=== PATIENT | male | born 1980 | race Caucasian/White ===

== ENCOUNTER 2016-09-30 09:42 | Emergency (ER) | payer OTHER ==
[2016-09-30] MEDS ORDERED: NS 1,000 ML IV ONE (10:07)
--- NOTE | 2016-09-30 10:10 | CPEKG ---
Heart Rate: 72 RR Interval: 833 P-R Interval: 156 QRSD Interval: 78 QT Interval: 368 QTC Interval: 403 P [place]: 62 QRS [place]: 70 T Wave [place]: 43 EKG Severity - NORMAL ECG - EKG Impression: SINUS RHYTHM Electronically Signed By: Gordon Garza 30-Sep-2016 10:10:49
--- NOTE | 2016-09-30 10:14 | EDPHY ---
H & P Stated Complaint: H/A and palpitations x 1 wk Source: Patient, Family Exam Limitations: No limitations - Personal History Current Tetanus Diphtheria and Acellular Pertussis (TDAP): Unsure - Medical/Surgical History Other PMH: healthy - Social History Smoking Status: Never smoked HPI/ROS: CHIEF COMPLAINT: Palpitations, no shortness of breath, dizziness HISTORY OF PRESENT ILLNESS: Patient complains of intermittent palpitations, shortness of breath, headache and dizziness. This originally started over the weekend. It is unpredictable and its onset. It is very brief when it does happen lasting less than a minute. There are no exacerbating factors. No alleviating factors as it resolved spontaneously. No actual chest pain, but he does have some pressure and he feels his heart beating when it happens. No lower extremity erythema edema or pain. No recent travel or surgery. No history of venous thrombolic event. Headache is mild, generalized and moves. No neck pain or stiffness. No sudden onset of the headache. This is not the worst headache of his life. No other associated complaints or modifying factors. PCP: Dr. Last, [facility] REVIEW OF SYSTEMS: Ten systems reviewed and are negative unless otherwise noted in the HPI PERTINENT MEDICAL HISTORY: History of hypotension EXAMINATION General Appearance: Alert, no distress Head: normocephalic, atraumatic Eyes: Pupils equal and round, no conjunctival pallor or injection ENT, Mouth: Mucous membranes moist. Uvula midline. Airway widely patent. Neck: Normal inspection, supple, non-tender. Painless range of motion all planes. Respiratory: Lungs are clear to auscultation. No wheezing, rhonchi or crackles. Cardiovascular: Regular rate and rhythm. No murmur. Gastrointestinal: Abdomen is soft and nontender Back: non-tender, no bony abnormalities Neurological: GCS 15. A&O, nonfocal, normal gait Skin: Warm and dry, no rash Extremities: Nontender, no pedal edema Psychiatric: Mood and affect normal DIFFERENTIAL DIAGNOSES: Including but not limited to the paroxysmal AFib, SVT, V-tach, anemia, PE, ACS, weakness, dehydration, electrolyte disturbance MDM: 10:08 a.m. Mild MENDOZA with Intermittent palpitations with some chest discomfort shortness of breath. This been going on for the past few days. Most recently this morning. It is nonexertional. It does not radiate. No syncope. No complaints consistent with venous thrombolic event. Vital signs stable. EKG, labs and chest x-ray are pending at this time. 10:12 a.m. EKG is unremarkable. 11:30 a.m. Laboratory studies were all unremarkable. Chest x-ray clear. This includes a negative troponin and a D-dimer. Patient's symptoms have been present past 3 days, thus the troponin is sensitive. Patient also feels this is related to stress and or a virus. He is comfortable with that and wants to be discharged home. I will provide cardiology referral for him. He will follow up with primary care physician as well. He is to return to ER for any return of chest pain, changes in his symptoms, syncope. He is comfortable with this plan and discharged home in stable condition. EKG interpreted: Dr. Garza Normal sinus rhythm. No ischemia or ectopy SUPERVISION: This patient was independently evaluated without direct examination by the attending physician. Case was discussed with attending physician. Case discussed with (Simone Cowan) Constitutional: Initial Vital Signs Temperature (C) 98.1 F 09/30/16 09:42 Heart Rate 80 09/30/16 09:42 Respiratory Rate 18 09/30/16 09:42 Blood Pressure 112/62 09/30/16 09:42 O2 Sat (%) 98 09/30/16 09:42 O2 Delivery Mode Room Air Allergies/Adverse Reactions: No Known Allergies Allergy (Unverified 09/30/16 09:47) Home Medications: Medication Instructions Recorded NK [No Known Home Meds] 09/30/16 Medical Decision Making - Diagnostics EKG Interpretation: 12-lead EKG interpreted by me; official reading is in trace master. My interpretation is sinus rhythm rate 72 normal intervals and no ischemic changes. (Gordon Garza) Imaging Results: Imaging Impressions Chest X-Ray 09/30/16 10:07 Impression: Normal area in - Data Points Laboratory Results: Laboratory Results 09/30/16 10:10 09/30/16 10:10 09/30/16 09/30/16 09/30/16 10:10 10:10 10:10 WBC 5.92 10^3/uL 10^3/uL (3.80-9.50) RBC 5.23 10^6/uL 10^6/uL (4.40-6.38) Hgb 16.2 g/dL g/dL (13.7-17.5) Hct 45.2 % % (40.0-51.0) MCV 86.4 fL fL (81.5-99.8) MCH 31.0 pg pg (27.9-34.1) MCHC 35.8 g/dL g/dL (32.4-36.7) RDW 12.2 % % (11.5-15.2) Plt Count 189 10^3/uL 10^3/uL (150-400) MPV 10.9 fL fL (8.7-11.7) Neut % (Auto) 60.4 % % (39.3-74.2) Lymph % (Auto) 27.0 % % (15.0-45.0) Benzie % (Auto) 10.3 % % (4.5-13.0) Eos % (Auto) 1.7 % % (0.6-7.6) Baso % (Auto) 0.3 % % (0.3-1.7) Nucleat RBC Rel Count 0.0 % % (0.0-0.2) Absolute Neuts (auto) 3.57 10^3/uL 10^3/uL (1.70-6.50) Absolute Lymphs (auto) 1.60 10^3/uL 10^3/uL (1.00-3.00) Absolute Monos (auto) 0.61 10^3/uL 10^3/uL (0.30-0.80) Absolute Eos (auto) 0.10 10^3/uL 10^3/uL (0.03-0.40) Absolute Basos (auto) 0.02 10^3/uL 10^3/uL (0.02-0.10) Absolute Nucleated RBC 0.00 10^3/uL 10^3/uL (0-0.01) Immature Gran % 0.3 % % (0.0-1.1) Immature Gran # 0.02 10^3/uL 10^3/uL (0.00-0.10) PT 14.1 SEC SEC (12.0-15.0) INR 1.10 (0.83-1.16) APTT 27.2 SEC SEC (23.0-38.0) D-Dimer < 0.27 ug/mLFEU ug/mLFEU (0.00-0.50) Sodium 139 mEq/L mEq/L (134-144) Potassium 4.0 mEq/L mEq/L (3.5-5.2) Chloride 103 mEq/L mEq/L (97-110) Carbon Dioxide 27 mEq/l mEq/l (22-31) Anion Gap 9 mEq/L mEq/L (8-16) BUN 12 mg/dL mg/dL (7-23) Creatinine 0.8 mg/dL mg/dL (0.7-1.3) Estimated GFR > 60 Glucose 97 mg/dL mg/dL (70-100) Calcium 9.8 mg/dL mg/dL (8.5-10.4) Troponin I < 0.012 ng/mL ng/mL (0-0.034) Medications Given: Discontinued Medications Sodium Chloride (Ns) 1,000 mls @ 0 mls/hr IV ONCE ONE PRN Reason: Wide Open Stop: 09/30/16 10:08 Last Admin: 09/30/16 10:37 Dose: 1,000 mls Departure - Departure Disposition: Home, Routine, Self-Care Clinical Impression: Palpitations Condition: Good Instructions: Palpitations (ED) Additional Instructions: Follow-up with Cardiology and primary care physician. Return to ER for return symptoms, or any chest pain at any time. Referrals: JAMES LAST [Primary Care Provider] - As per Instructions Tevin Sam MD [Medical Doctor] - As per Instructions
[2016-09-30 10:18] LABS: % IMMATURE GRANULYOCYTES 0.3 % (0.0-1.1); ABSOLUTE IMMATURE GRANULOCYTES 0.02 10^3/uL (0.00-0.10); ADD DIFF? NO; ADD MORPH? NO; ADD SCAN? NO; ATYPICAL LYMPHOCYTE FLAG 10 (0-99); FRAGMENT RBC FLAG 0 (0-99); HEMATOCRIT 45.2 % (40.0-51.0); HEMOGLOBIN 16.2 g/dL (13.7-17.5); LEFT SHIFT FLG 10 (0-99); LIPEMIA HEMOLYSIS FLAG 90 (0-99); MEAN CELL HEMOGLOBIN CONCENTR. 35.8 g/dL (32.4-36.7); MEAN CELL VOLUME 86.4 fL (81.5-99.8); MEAN PLATELET VOLUME 10.9 fL (8.7-11.7); PLATELET CLUMPS FLAG 0 (0-99); PLATELET COUNT 189 10^3/uL (150-400); RED BLOOD CELL COUNT 5.23 10^6/uL (4.40-6.38); RED CELL DISTRIBUTION WIDTH 12.2 % (11.5-15.2)
[2016-09-30 10:30] LABS: APTT 27.2 SEC (23.0-38.0); PROTIME(PATIENT) 14.1 SEC (12.0-15.0)
[2016-09-30 10:31] LABS: ANION GAP 9 mEq/L (8-16); CALCIUM 9.8 mg/dL (8.5-10.4); CARBON DIOXIDE 27 mEq/l (22-31); CHLORIDE 103 mEq/L (97-110); CREATININE 0.8 mg/dL (0.7-1.3); GLOMERULAR FILTRATION RATE > 60; GLUCOSE 97 mg/dL (70-100); SODIUM 139 mEq/L (134-144)
[2016-09-30 10:43] LABS: TROPONIN I < 0.012 ng/mL (0-0.034)
[2016-09-30 11:46] VITALS: BP 110/77; PULSE 60; RESP 16; TEMP 97.9; O2SAT 96
== END 2016-09-30 11:45 | disposition home or self-care (01) ==
DX: R00.2 Palpitations (principal)

== ENCOUNTER 2017-05-13 22:00 | Emergency (ER) | payer OTHER ==
[2017-05-13 22:11] VITALS: BP 121/72; PULSE 75; RESP 18; TEMP 98.8; O2SAT 96
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
== END 2017-05-13 23:03 | disposition home or self-care (01) ==
LOC: EDUNIT#
DX: Z77.098 Contact with and (suspected) exposure to other hazardous, chiefly nonmedicinal, chemicals (principal)